=== PATIENT | male | born 1990 | race Caucasian/White ===

== ENCOUNTER 2023-10-19 19:00 | Emergency (ER) | payer OTHER ==
[~2023-10-19] VITALS: Ht 185.4 cm; Wt 83.9 kg
[2023-10-19 19:13] VITALS: BP 140/89; TEMP 98.4; O2SAT 100
== END 2023-10-19 20:45 | disposition left against medical advice (07) ==
LOC: ER 19:05
DX: F41.9 Anxiety disorder, unspecified (principal); Z53.21 Procedure and treatment not carried out due to patient leaving prior to being seen by health care provider